=== PATIENT | male | born 1940 | race Caucasian/White ===

== ENCOUNTER 2020-05-22 13:18 | Emergency (ER) | payer MEDICARE, SELFPAY ==
--- NOTE | 2020-05-22 13:24 | ED.GENADULT ---
HPI - General Adult General Chief complaint: Head Injury Stated complaint: fell and hit head/side/knees Time Seen by Provider: 05/22/20 13:24 Source: patient Mode of arrival: ambulatory Limitations: no limitations History of Present Illness HPI narrative: 79-year-old male patient presents to the [facility] with complaints of a head injury after falling today. Patient states that he thinks he was shuffling his feet did brain picker his feet and fell landing on a concrete hitting the left side of his head. Denies loss of consciousness. Patient is on blood thinners at this time. Patient states he does have a slight headache but denies any other injuries at this time. Related Data Home Medications Medication Instructions Recorded Confirmed apixaban [Eliquis] 5 mg PO DAILY 05/22/20 05/22/20 atorvastatin 80 mg PO DAILY 05/22/20 05/22/20 empagliflozin [Jardiance] 25 mg PO DAILY 05/22/20 05/22/20 fluticasone propionate 2 mcg INTRANASAL DAILY 05/22/20 05/22/20 furosemide 20 mg PO DAILY 05/22/20 05/22/20 liraglutide [Victoza 3-Margarito] 0.6 mg SUBCUT DIRECTED 05/22/20 05/22/20 metformin 850 mg PO DIRECTED 05/22/20 05/22/20 metoprolol tartrate 25 mg PO BID 05/22/20 05/22/20 pantoprazole 40 mg PO DAILY 05/22/20 05/22/20 potassium chloride [Klor-Con M10] 10 meq PO DAILY 05/22/20 05/22/20 sertraline 50 mg PO DAILY 05/22/20 05/22/20 simvastatin 40 mg PO DAILY 05/22/20 05/22/20 Allergies Allergy/AdvReac Type Severity Reaction Status Date / Time No Known Allergies Allergy Unverified 05/22/20 13:31 Review of Systems Review of Systems: Narrative: CONSTITUTIONAL: Denies fever, chills, or sweats. EYES: Denies visual changes, redness, or discharge. ENT: Denies rhinorrhea, congestion, sore throat, or otalgia. CARDIOVASCULAR: Denies chest pain, palpitations, or edema. RESPIRATORY: Denies cough or dyspnea. GASTROINTESTINAL: Denies abdominal pain, nausea, vomiting, or diarrhea. GENITOURINARY: Denies dysuria or hematuria. SKIN: Denies rash or itching. MUSCULOSKELETAL: Denies back pain, joint pain, or myalgia. NEUROLOGIC: Positive headache left-sided head after fall, denies numbness, or weakness. PSYCHIATRIC: Denies anxiety or depression. 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 There is no relevant family history pertinent to the presenting complaint. Exam Narrative: Exam Narrative: GENERAL: Well-appearing, well-nourished, and in no acute distress. HEAD: Normocephalic, atraumatic. EYES: PERRLA and EOMI. ENT: Nares clear, no rhinorrhea or epistaxis. Mucous membranes moist. NECK: Supple. No lymphadenopathy CHEST: Clear to auscultation. No respiratory distress. HEART: Regular rate and rhythm. No murmur heard. Normal peripheral pulses. ABDOMEN: Soft, nontender, nondistended, normal active bowel sounds. EXTREMITIES: Normal range of motion. No edema. SKIN: Warm, dry, no rash. NEURO: Alert and oriented x4, GCS 15. Cranial nerves II through XII grossly intact. No focal neurological deficits. Normal muscle strength and tone. Normal deep tendon reflexes. Negative Babinski, normal finger to nose coordination he had normal heel to solomon glide. Speech is clear. Normal gait. Negative Romberg and no pronator drift Course Vital Signs Vital signs: Vital Signs Temperature 36.6 C 05/22/20 13:31 Pulse Rate 80 05/22/20 13:31 Respiratory Rate 05/22/20 13:31 Blood Pressure 117/68 05/22/20 13:31 Pulse Oximetry 97 05/22/20 13:31 Temperature 36.6 C 05/22/20 13:31 Pulse Rate 80 05/22/20 13:31 Respiratory Rate 05/22/20 13:31 Blood Pressure 117/68
[2020-05-22 13:31] VITALS: BP 117/68; PULSE 80; RESP 20; TEMP 36.6; O2SAT 97
== END 2020-05-22 13:50 | disposition short-term general hospital (02) ==
PROVIDERS: Emergency Provider Nurse Practitioner Family; PCP Internal Medicine
DX: S09.90XA Unspecified injury of head, initial encounter (principal); W01.0XXA Fall on same level from slipping, tripping and stumbling without subsequent striking against object, initial encounter; Z95.5 Presence of coronary angioplasty implant and graft; K21.9 Gastro-esophageal reflux disease without esophagitis; E78.00 Pure hypercholesterolemia, unspecified; I10 Essential (primary) hypertension; E10.9 Type 1 diabetes mellitus without complications
CPT/HCPCS: 99213; G0463

== ENCOUNTER 2020-09-05 16:08 | Emergency (ER) | payer MEDICARE, SELFPAY ==
--- NOTE | 2020-09-05 16:11 | ED.URI ---
HPI - URI/Sore Throat General Chief Complaint: Ear Stated Complaint: ear prob Time Seen by Provider: 09/05/20 16:11 Source: patient and RN notes reviewed History of Present Illness HPI Narrative: Patient is a 79-year-old male who presents the urgent care with complaints of bilateral ear wax. Patient states that he went to his dramatic coach and they told him they were unable to assess the new hearing aids due to the cerumen impaction. Patient states that he goes back to his follow-up appointment on Monday and needs the wax removed. Denies of any ear pain. Patient has not done any at home remedies for the wax removal. No other acute complaints. No acute distress noted. Patient aware of the plan of care. Some parts of this dictation were generated by voice recognition software and may contain typographical and/or grammatical inaccuracies. Related Data Home Medications Medication Instructions Recorded Confirmed apixaban [Eliquis] 5 mg PO DAILY 05/22/20 09/05/20 atorvastatin 80 mg PO DAILY 05/22/20 09/05/20 empagliflozin [Jardiance] 25 mg PO DAILY 05/22/20 09/05/20 fluticasone propionate 2 mcg INTRANASAL DAILY 05/22/20 09/05/20 furosemide 20 mg PO DAILY 05/22/20 09/05/20 liraglutide [Victoza 3-Margarito] 0.6 mg SUBCUT DIRECTED 05/22/20 09/05/20 metformin 850 mg PO DIRECTED 05/22/20 09/05/20 metoprolol tartrate 25 mg PO BID 05/22/20 09/05/20 pantoprazole 40 mg PO DAILY 05/22/20 09/05/20 potassium chloride [Klor-Con M10] 10 meq PO DAILY 05/22/20 09/05/20 sertraline 50 mg PO DAILY 05/22/20 09/05/20 simvastatin 40 mg PO DAILY 05/22/20 09/05/20 Allergies Allergy/AdvReac Type Severity Reaction Status Date / Time No Known Allergies Allergy Verified 09/05/20 16:28 Review of Systems Review of Systems: Narrative: CONSTITUTIONAL: Denies fever, chills, or sweats. EYES: Denies visual changes, redness, or discharge. ENT: Denies rhinorrhea, congestion, sore throat, or otalgia. Reports of bilateral ear wax CARDIOVASCULAR: Denies chest pain, palpitations, or edema. RESPIRATORY: Denies cough or dyspnea. GASTROINTESTINAL: Denies abdominal pain, nausea, vomiting, or diarrhea. GENITOURINARY: Denies dysuria or hematuria. SKIN: Denies rash or itching. MUSCULOSKELETAL: Denies back pain, joint pain, or myalgia. NEUROLOGIC: Denies headache, numbness, or weakness. All other systems reviewed are negative, except as documented in HPI. 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 There is no relevant family history pertinent to the patient complaint. Exam Narrative: Exam Narrative: GENERAL: This is a well-nourished, well-developed patient, in no apparent distress. HEAD: normocephalic, atraumatic. EYES: PERRL. Sclera clear/white. Vision is grossly intact. EARS: External ears normal, auditory canals clear and without drainage, unable to visualize bilateral TMs due to cerumen impaction. Chronic hearing difficulty NOSE: External nose normal with no obvious nasal discharge THROAT: Mucous membranes moist NECK: Neck supple SKIN: warm, intact with no suspicious lesions or rash, good texture and turgor. NEURO: awake, alert, and oriented to person, place and time. There were no obvious focal neurologic abnormalities. EXTREMITIES: No clubbing, cyanosis, or edema. Course Vital Signs Vital signs: Vital Signs Temperature 97.7 F 09/05/20 16:12 Pulse Rate 67 09/05/20 16:12 Respiratory Rate 16 09/05/20 16:12 Blood Pressure 130/67 09/05/20 16:12 Pulse Oximetry 98 09/05/20 16:12 Temperature 97.7 F 09/05/20 16:12 Pulse Rate 67 09/05/20 16:12 Respir
[2020-09-05 16:12] VITALS: BP 130/67; PULSE 67; RESP 16; TEMP 36.5; O2SAT 98
== END 2020-09-05 16:45 | disposition home or self-care (01) ==
PROVIDERS: Emergency Provider Nurse Practitioner Family; PCP Internal Medicine
DX: H61.23 Impacted cerumen, bilateral (principal); K21.9 Gastro-esophageal reflux disease without esophagitis; E78.00 Pure hypercholesterolemia, unspecified; I10 Essential (primary) hypertension; E11.9 Type 2 diabetes mellitus without complications; I25.10 Atherosclerotic heart disease of native coronary artery without angina pectoris; Z95.5 Presence of coronary angioplasty implant and graft
CPT/HCPCS: 69209; 99213; G0463